=== PATIENT | female | born 1960 | race African-American/Black ===

== ENCOUNTER 2018-01-04 13:31 | Emergency (ER) | payer OTHER ==
[2018-01-04] MEDS ORDERED: ATIVAN IV ONE (14:37)
[2018-01-04] MEDS ORDERED: ZOFRAN IV ONE (14:37)
[2018-01-04] MEDS ORDERED: FIORICET PO ONE (14:37)
--- NOTE | 2018-01-04 14:48 | Emergency Department Report ---
HPI - General Chief Complaint: Seizure Time Seen by Provider: 01/04/18 14:36 - HPI HPI: Room 9 The patient is a 57-year-old female presenting with a chief complaint of head pain after seizure. Patient had a seizure today and fell striking the right side of her head. Patient now complains of headache and nausea. The patient takes Depakote for her seizures and has been compliant Location: Head, [employer] Duration: [See above] Quality: [See above] Severity: Moderate Modifying factors: See above Context: [see above] Mode of transportation: [not driving] ED Past Medical Hx - Past Medical History Hx Seizures: Yes - Surgical History Past Surgical History?: No - Family History Family history: no significant - Social History Smoking Status: Never Smoker Substance Use Type: None - Medications Home Medications: Home Medications Medication Instructions Recorded Confirmed Last Taken Type Butalb/Acetamin/Caff 50-325-40 2 tab PO Q8HR PRN #10 tablet 01/04/18 Unknown Rx [Fioricet] ED Review of Systems ROS: Stated complaint: POSS SEIZURE Other details as noted in HPI Gastrointestinal: nausea Neurological: headache, other (seizure) Physical Exam - Physical Exam Physical Exam: GENERAL: The patient is well-developed well-nourished female sitting on a wheelchair appearing to be in mild discomfort. [] HEENT: Normocephalic. Right facial ecchymosis. Extraocular motions are intact. Patient has moist mucous membranes. NECK: Supple. No axial step-off CHEST/LUNGS: Clear to auscultation. There is no respiratory distress noted. HEART/CARDIOVASCULAR: Regular. There is no tachycardia. There is no gallop rub or murmur. ABDOMEN: Abdomen is soft, nontender. Patient has normal bowel sounds. There is no abdominal distention. SKIN: There is no rash. There is no edema. There is no diaphoresis. NEURO: The patient is awake, alert, and oriented. The patient is cooperative. The patient has normal speech MUSCULOSKELETAL: There is no limitation range of motion. ED Course - Consultations Consultation #1: 01/04/18 17:07 CT findings discussed with patient and family member at bedside. Informed that they are being given a referral to ENT for further evaluation ED Medical Decision Making - Lab Data Result diagrams: 01/04/18 15:15 01/04/18 15:15 Laboratory Tests 04/01/04/18 01/04/18 15:15 15:15 15:40 WBC 8.4 RBC 3.91 Hgb 12.6 Hct 37.0 MCV 95 MCH 32 MCHC 34 RDW 12.2 L Plt Count 450 H Sodium 140 Potassium 3.7 Chloride 99.6 Carbon Dioxide 24 Anion Gap 20 BUN 10 Creatinine 0.4 L Estimated GFR > 60 BUN/Creatinine Ratio 25 Glucose 127 H Calcium 9.0 Valproic Acid < 2.8 L - Radiology Data Radiology results: report reviewed (CT head, CT cervical spine), image reviewed (CT head, CT cervical spine) [address] [address] Cat Scan Report Signed Patient: JAMI ROUSE MR#: [id number] : 04/08/1979 Acct:[id number] Age/Sex: 38 / F ADM Date: 01/04/18 Loc: ED Attending Dr: Ordering Physician: MARTA FAIRCHILD MD Date of Service: 01/04/18 Procedure(s): CT abdomen pelvis w con Accession Number(s): [id number] cc: MARTA FAIRCHILD MD CT scan of abdomen and pelvis with IV contrast: History: Diffuse abdominal pain, rectal bleeding. Findings: Normal lung bases. No pleural pericardial effusion. Normal liver spleen pancreas and gallbladder. Normal adrenals kidney parenchyma and bladder. No free intraperitoneal fluid or air. No evidence of adenopathy. Normal aorta. Gaseous colon with stool in colon. Normal appendix. No evidence of diverticulitis. Impression: Stool throughout colon. No bowel distention Transcribed By: PTP Dictated By: MARINO FROST MD Electronically Authenticated By: MARINO FROST MD Signed Date/Time: 01/04/18 1235 DD/ 1233 TD/TT: 01/04/[address] [address] Cat Scan Report Signed Patient: NADIRA MCCULLOUGH MR#: [id number] : 1960 Acct:[id number] Age/Sex: 57 / F ADM Date: 01/04/18 Loc: ED Attending Dr: Ordering Physician: MARTA FAIRCHILD MD Date of Service: 01/04/18 Procedure(s): CT cervical spine wo con Accession Number(s): [id number] cc: MARTA FAIRCHILD MD FINAL REPORT EXAM: CT CERVICAL SPINE WO CON HISTORY: head injury after seizure TECHNIQUE: CT examination of the cervical spine without IV contrast PRIORS: None. FINDINGS: Prevertebral soft tissues are without swelling. No evidence of cervical fracture or vertebral compression. Multilevel degenerative changes are present at the vertebral endplates, facet joints, and uncinate joints. Spondylolisthesis is not visualized. Disc narrowing is noted at C4-5, C5-6, and C6-7. No definite CT evidence of neural foraminal stenosis. Soft tissue windows suggest diffuse posterior disc bulge at C4-5, C5-6, and C6-7. Nonspecific 11 mm sclerotic lesion in the left mandibular angle. Interstitial scar in right lung apex. IMPRESSION: No acute skeletal pathology in the cervical spine Nonspecific fluoroscopy lesion in left mandibular angle may be a bone island. Differential includes blastic lesion in the appropriate clinical setting Multilevel degenerative change and disc narrowing Soft tissue windows suggest multilevel diffuse posterior disc bulge Transcribed By: BAL Dictated By: JUANA CASILLAS MD Electronically Authenticated By: JUANA CASILLAS MD Signed Date/Time: 01/04/181599 DD/ 1600 TD/TT: 01/04/18 1600 - Differential Diagnosis seizure, ICH, headache Critical care attestation.: If time is entered above; I have spent that time in minutes in the direct care of this critically ill patient, excluding procedure time. ED Disposition Clinical Impression: Seizure, Closed head injury, Seizure secondary to subtherapeutic anticonvulsant medication Disposition: DC-01 TO HOME OR SELFCARE Is pt being admited?: No Does the pt Need Aspirin: No Condition: Stable Instructions: Epilepsy (ED) Additional Instructions: Return to the emergency department immediately should you develop worsening symptoms, fever, inability to tolerate food or liquid or any other concerns. 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 Please follow up with him for further evaluation of your left mandible bone island) Time of Disposition: 17:11
--- NOTE | 2018-01-04 15:17 | Cat Scan Report ---
FINAL REPORT EXAM: CT HEAD/BRAIN WO CON HISTORY: head injury after seizure TECHNIQUE: CT examination of the head without IV contrast PRIORS: None. FINDINGS: Slight right parietal scalp swelling. Adjacent skull is intact. No acute air-fluid level visualized in the included air-filled sinuses. Bone windows demonstrate no acute fracture. There is ventricular and sulcal prominence compatible with global cerebrocortical atrophy. The brain contains no mass, mass effect, hemorrhage, or acute infarct. There is no extra-axial intracranial bleed, brain bleed, or midline shift. IMPRESSION: No acute CVA, intracranial bleed, or brain mass
[2018-01-04 15:25] LABS: Hemoglobin 12.6 gm/dl (10.1-14.3); Mean Corpuscular HGB Conc 34 % (30-34); Mean Corpuscular Hemoglobin 32 pg (28-32); Mean Corpuscular Volume 95 fl (79-97); Platelet Count 450 K/mm3 (140-440); Red Blood Count 3.91 M/mm3 (3.65-5.03); Red Cell Distribution Width 12.2 % (13.2-15.2)
[2018-01-04 15:28] VITALS: BP 123/67
[2018-01-04 15:37] LABS: BUN/Creatinine Ratio 25; Blood Urea Nitrogen 10 mg/dL (7-17); Hemolysis Index 10
--- NOTE | 2018-01-04 16:06 | Cat Scan Report ---
FINAL REPORT EXAM: CT CERVICAL SPINE WO CON HISTORY: head injury after seizure TECHNIQUE: CT examination of the cervical spine without IV contrast PRIORS: None. FINDINGS: Prevertebral soft tissues are without swelling. No evidence of cervical fracture or vertebral compression. Multilevel degenerative changes are present at the vertebral endplates, facet joints, and uncinate joints. Spondylolisthesis is not visualized. Disc narrowing is noted at C4-5, C5-6, and C6-7. No definite CT evidence of neural foraminal stenosis. Soft tissue windows suggest diffuse posterior disc bulge at C4-5, C5-6, and C6-7. Nonspecific 11 mm sclerotic lesion in the left mandibular angle. Interstitial scar in right lung apex. IMPRESSION: No acute skeletal pathology in the cervical spine Nonspecific fluoroscopy lesion in left mandibular angle may be a bone island. Differential includes blastic lesion in the appropriate clinical setting Multilevel degenerative change and disc narrowing Soft tissue windows suggest multilevel diffuse posterior disc bulge
[2018-01-04] MEDS ORDERED: DepaCON 500 MG in NACL 0.9% 100 ML IV ONE (18:00)
== END 2018-01-04 19:03 | disposition home or self-care (01) ==
LOC: ED 13:31
DX: S09.90XA Unspecified injury of head, initial encounter (principal); R56.9 Unspecified convulsions; W18.30XA Fall on same level, unspecified, initial encounter; Y93.89 Activity, other specified; Y92.89 Other specified places as the place of occurrence of the external cause; Y99.8 Other external cause status
CPT/HCPCS: 36415; 70450; 72125; 80048; 80164; 85027; 96365; 96375; 99285; J2060; J2405